=== PATIENT | male | born 1970 | race Caucasian/White ===

== ENCOUNTER 2022-08-03 13:25 | Outpatient (OUT) | payer MEDICARE, MEDICAID, SELFPAY ==
--- NOTE | 2022-08-03 14:55 | PM.CN ---
Consult Note: HPI Data of Consult Patient: new to practice Consult date: 08/03/22 Requesting Physician: Marco A Menendez MD Primary Care Provider: JACK HINSON Consult Narrative Reason for consult: neck pain, low back pain Narrative: this is a pleasant 52-year-old gentleman who presents for evaluation. He notes persistence of pain that radiates from his neck into his bilateral upper extremities, as well as low back pain. He recently underwent a cervical x-ray, which is significant for spondylosis and narrowing at multiple levels. He engages in providing directed home exercises, which have not provided relief. He primarily utilizes [id number] pain medications, which did not provide relief. He otherwise denies ever smoking medication side effects or loss of bowel or bladder control. cc:: CC: Marco A Menendez MD Review of Systems ROS Status of ROS 10 or more systems reviewed and unremarkable except as noted in history and below Meds Home Medications and Allergies Home Medications Medication Instructions Recorded Confirmed Type atorvastatin 40 mg tablet 40 mg PO DAILY 08/03/22 08/03/22 History cyclobenzaprine 10 mg tablet 10 mg PO TID 08/03/22 08/03/22 History dulaglutide 1.5 mg/0.5 mL 1.5 mg subcut QWEEK 08/03/22 08/03/22 History subcutaneous pen injector (Trulicity) escitalopram oxalate 20 mg tablet 20 mg PO DAILY 08/03/22 08/03/22 History folic acid 1 mg tablet 1 mg PO DAILY 08/03/22 08/03/22 History gabapentin 600 mg tablet 600 mg PO BID 08/03/22 08/03/22 History insulin glargine 45 unit subcut DAILY 08/03/22 08/03/22 History lisinopril 20 1 tab PO DAILY 08/03/22 08/03/22 History mg-hydrochlorothiazide 12.5 mg tablet meloxicam 15 mg tablet 15 mg PO DAILY 08/03/22 08/03/22 History metformin 1,000 mg tablet 1,000 mg PO BID 08/03/22 08/03/22 History Allergies Allergy/AdvReac Type Severity Reaction Status Date / Time pioglitazone [From Actos] Allergy Unknown Verified 08/03/22 14:48 Exam Constitutional Common normals: no apparent distress, oriented x3 and healthy appearing Neck & C-Spine Other: tenderness to palpation from the cervical spine and paraspinal musculature. Pain is elicited with flexion, extension, and lateral rotation of the cervical spine. Facet loading maneuvers are positive bilaterally. Strength is unremarkable throughout the bilateral upper extremities except for decreased strength rated at four out of five in the bilateral biceps, triceps. Sensation is unremarkable throughout the bilateral upper extremities except for dysesthesia in the bilateral C4, C5, C6, C7 dermatomal distributions. Coordination remains intact. Gait is nonantalgic. Respiratory Common normals: normal respiratory effort Effort & inspection: able to speak in complete sentences Extremity Common normals: normal to inspection Neuro Common normals: oriented x3, CN's II-XII intact bilaterally and no focal motor deficits Psych Common normals: mental status grossly normal and cooperative Assessment and Plan Assessment and Plan (1) Cervical spondylosis: (2) Cervical stenosis of spinal canal: Plan this is a pleasant 52-year-old gentleman who presents for evaluation. He has failed physical and medical modalities, as listed above. His imaging was reviewed, as noted above. Given his symptomatology, exam findings, and failure to respond but is, it is prudent to proceed with cervical MRI without contrast for further information. He is in agreement with this plan. Medications were reviewed. I will have him trial Flexeril 10 mg 3 times a day when necessary. He expressed understanding. He'll follow up after the imaging is complete.
== END 2022-08-03 13:26 | disposition home or self-care (01) ==
PROVIDERS: PCP Family Medicine; Visit Provider Anesthesiology
DX: M47.812 Spondylosis without myelopathy or radiculopathy, cervical region (principal); M48.02 Spinal stenosis, cervical region
CPT/HCPCS: G0463